=== PATIENT | female | born 1955 | race Caucasian/White ===

== ENCOUNTER 2016-11-09 16:51 | Observation (INO) | payer SELFPAY ==
--- NOTE | ~2016-11-09 | HP ---
History And Physical [address] [place]. [address] NAME: SPIKE TREVIÑO : 51 STATUS : ADM Evsin PAT#: [id number] AGE: 61 ADM/REG DATE : 11/09/16 MR#: [id number] REPORT SERV DATE: 11/10/16 DICTATED BY: IRAIDA DASH DATE: 11/09/16 REPORT STATUS : Draft TRANSCRIBED BY: MODJerad DATE: 11/09/16 DATE OF ADMISSION: 11/09/2016 CHIEF COMPLAINT: Numbness in face and arms. HISTORY OF PRESENT ILLNESS: The patient is a 61-year-old female with past medical history of hypertension, asthma, diabetes type 2 non-insulin dependent, hypothyroidism, history of DVT and PE, is on chronic anticoagulation and IVC filter placement due to hypercoagulable state; who presents after having upper extremity tingling feeling and numbness on face that majority have resolved but started approximately 11 o'clock today. Intermittent symptoms have been mild, majority left side but then went to right side face. No pain. Did have headaches, was found to be hypertensive in the 210s initially but self- resolved in the 160s without intervention. No nausea, vomiting, diarrhea, fever, chills, shortness of breath. There are no worsening or relieving symptoms, symptoms still currently present. Heart symptoms are currently almost fully resolved except for lip tingling. The patient did have eye pressure when blood pressure was high but this is also resolved too. PAST MEDICAL HISTORY: Asthma, hypertension, hypothyroidism, hyperlipidemia, PE, DVT. PAST SURGICAL HISTORY: Cholecystectomy, hysterectomy, IVC filter. ALLERGIES: SULFA. SOCIAL HISTORY: Lives in [place], [place] accompanied by . No alcohol, illicits, or tobacco. FAMILY HISTORY: CHF, hypertension, sisters have stroke. CURRENT MEDICATIONS: Tylenol, Synthroid, loratadine, metformin, Xarelto, Micardis, and Ultram. PHYSICAL EXAMINATION: VITAL SIGNS: The patient's blood pressure initially 219/107 down to 168/80s without intervention, temperature 98.7, pulse 90, respirations 19, and O2 sats 100%. GENERAL: No acute distress. Calm, pleasant, but obese. EYES: No scleral icterus. EOMI. ENT: Nares patent. Tongue midline. RESPIRATORY: Clear to auscultation. No wheezes or rales. CV: Regular rate. No rubs. GI: Soft, nontender, nondistended. Bowel sounds positive. Central obesity. : Deferred. MUSCULOSKELETAL: Moves all extremities x4. Symmetrical strength. SKIN: Warm and dry. LYMPH: No cervical or supraclavicular lymphadenopathy. HEME: No bleeding or bruising. NEURO: Alert and oriented. Symmetrical smile. Tongue midline. Eyes with bilateral mild History And Physical [address] [address] NAME: SPIKE TREVIÑO : 51 STATUS : ADM Esvin PAT#: [id number] AGE: 61 ADM/REG DATE : 11/09/16 MR#: [id number] REPORT SERV DATE: 11/10/16 DICTATED BY: IRAIDA DASH DATE: 11/09/16 REPORT STATUS : Draft TRANSCRIBED BY: RENETTA DATE: 11/09/16 horizontal nystagmus but no diplopia. No vertical nystagmus. Symmetrical brow wrinkle. Symmetrical strength in hands. Sensation grossly intact in upper and lower extremities. Does have movement in lower extremities. However, gait currently not tested. Normal vocal pelon and linear thinking. PSYCH: Appropriate mood and affect. LABS AND IMAGING: EKG normal sinus rhythm, rate of 93, QTc 435. Portable chest. No acute cardiopulmonary findings. Brain without contrast, no acute intracranial abnormality, calcified atherosclerosis. CMP grossly within normal limits. LFTs within normal limits. Troponin negative. CBC also grossly within normal limits. INR 1.3. Protime 16.2. ASSESSMENT AND PLAN: 1. Transient ischemic attack. 2. Hypercoagulable state. 3. Accelerated hypertension. 4. Axk-laixiry-orivedctu diabetes. 5. Hypothyroidism. 6. Hyperlipidemia. PLAN: 1. For TIA, CT negative. Does have risk factors of family history, diabetes, hypertension, PE, DVT, hypercoagulable state. We will check MRI, MRA for atypical symptoms, TIA protocol initiated. 2. Hypercoagulable state. PE, DVT, on Xarelto and has IVC filter. 3. Accelerated hypertension resolved without any intervention. Continue home medications and p.r.n. Blood pressure has improved to 160s and symptoms have resolved after blood pressure has decreased without any intervention in emergency room. 4. Jhl-ezrwout-mwlrhncmf diabetes. Sliding scale insulin. Check A1c. 5. Hypothyroidism, on replacement. 6. Hyperlipidemia. Check lipid profile. Start statin. All questions answered with the patient and family at bedside pending treatment as above. DDN/MODL Iraida Dash MD / [id number] CC: Edgar Card M.D.
--- NOTE | ~2016-11-09 | DS ---
Discharge Summary [facility] [address] [place]. [address] NAME: SPIKE TREVIÑO : 51 STATUS : DIS Esvin PAT#: [id number] AGE: 61 ADM/REG DATE : 11/09/16 MR#: [id number] REPORT SERV DATE: 11/10/16 DICTATED BY: IAIN MEJIA DATE: 11/10/16 REPORT STATUS : Draft TRANSCRIBED BY: MODL DATE: 11/10/16 ADMISSION DATE: 11/09/2016 DISCHARGE DATE: 11/10/2016 PRIMARY CARE PHYSICIAN: In [place], [place]. FINAL DIAGNOSES: This is a 61-year-old female who is going to be discharged with final diagnoses: 1. Possible transient ischemic attack. 2. Hypertensive urgency, resolved. 3. Hypercoagulable state with history of deep vein thrombosis and pulmonary embolism. 4. Diabetes. 5. Hypothyroidism. DIAGNOSTIC EXAMS: CAT scan of the brain showing no acute intracranial abnormality, calcific atherosclerosis. Chest x-ray showing no acute cardiopulmonary process. MRI of the brain and neck and MRA showing negative limited MRI of the brain. Normal MRA of the [place]. Normal MRA of the neck. HOSPITAL COURSE: Please refer to the H and P done by Dr. Dash dated yesterday, 11/09/2016. Briefly, this is a 61-year-old female who comes in for numbness in the face and arm. The patient has a history of DVT of the right lower extremity and PE at the same time. She got a filter and is on anticoagulation since then. The patient did not have any history of heart or brain disease and yesterday, she started having some upper extremity tingling and numbness that went to her face. The patient went to the emergency room, was found to have a systolic of 210, and she said her baseline is about 130 to 140 all the time. The patient was then admitted by Dr. Dash with a negative CAT scan. An MRI/MRA was done which shows the above findings. The patient's blood pressure went down. Symptoms went away. The patient is able to eat, remains afebrile with the rest of the vital stable, so with this, we will be discharging the patient with a possible TIA versus hypertensive urgency. Next, hypercoagulable state with a history of DVT and PE, diabetes, and hypothyroidism. DISCHARGE MEDICATIONS: The patient will now be discharged with the following medication aspirin 81 mg a day, Lipitor 10 mg at bedtime, Synthroid 100 mcg a day, loratadine 10 mg a day, Xarelto 20 mg a day, Micardis 40 mg a day, metformin 500 mg with supper, Ultram 50 mg p.r.n., and Tylenol p.r.n. The patient will follow up with her PCP in [place], [place]. This has been explained to her in front of the . They agreed and understood the plan. ZEYAD/RENETTA Iain Mejia M.D. Discharge Summary [address] [address] NAME: SPIKE TREVIÑO : 51 STATUS : DIS Esvin PAT#: [id number] AGE: 61 ADM/REG DATE : 11/09/16 MR#: [id number] REPORT SERV DATE: 11/10/16 DICTATED BY: IAIN MEJIA DATE: 11/10/16 REPORT STATUS : Draft TRANSCRIBED BY: RENETTA DATE: 11/10/16 / [id number] CC: Iain Mejia M.D. NO PCP
[2016-11-09 14:46] LABS: BASOPHILS 0.9 %; BASOPHILS ABSOLUTE 0.07 10/3/uL (0.0-0.16); EOSINOPHILS 3.2 %; EOSINOPHILS ABSOLUTE 0.24 10/3/uL (0.0-0.53); HEMATOCRIT 42.7 % (36.0-48.0); HEMOGLOBIN 14.5 g/dL (12.0-16.0); IMMATURE GRANULOCYTES 0.1 %; IMMATURE GRANULOCYTES ABSOLUTE 0.01 10/3/uL (0.0-0.11); LYMPHOCYTES 28.7 %; LYMPHOCYTES ABSOLUTE 2.14 10/3/uL (0.67-4.30); MEAN CORPUSCULAR VOLUME 88.4 fL (80-100); MEAN PLATELET VOLUME 9.7 fL (9.2-13.0); MONOCYTES 9.9 %; MONOCYTES ABSOLUTE 0.74 10/3/uL (0.21-1.20); NEUTROPHILS 57.2 %; NEUTROPHILS ABSOLUTE 4.26 10/3/uL (2.02-8.40); PLATELET COUNT 299 10/3/uL (150-400); RBC DISTRIBUTION WIDTH 13.3 % (12.0-16.0); RED CELL COUNT 4.83 10/6/uL (4.0-5.6); WHITE BLOOD CELLS 7.5 10/3/uL (4.5-10.5)
[2016-11-09 14:47] LABS: MANUAL DIFF NO %
[2016-11-09 14:55] LABS: INTERNATIONAL NORMAL RATI 1.3 UNITS (-); PROTIME (NOT ORD) 16.2 SEC (12.0-14.5)
[2016-11-09 15:03] LABS: A/G RATIO 0.9 (0.7-1.9); ALBUMIN 3.6 G/DL (3.5-5.0); ALKALINE PHOSPHATASE 75 U/L (45-117); BUN (BLOOD UREA NITROGEN) 12 MG/DL (6-23); CALCIUM, SERUM 9.5 MG/DL (8.5-10.4); CHLORIDE, SERUM 107 MMOL/L (96-112); CO2 (CARBON DIOXIDE) 27 MMOL/L (24-34); CREATININE 0.76 MG/DL (0.55-1.02); GFR AFRICAN AMERICAN 97 ML/MIN (>=60); GFR NON AFRICAN AMERICAN 83 ML/MIN (>=60); GLOBULIN 4.2 G/DL (2.5-4.1); GLUCOSE, SERUM 85 MG/DL (60-99); SGOT(AST) 15 U/L (5-40); SGPT(ALT) 25 U/L (5-65); SODIUM, SERUM 140 MMOL/L (135-148); TOTAL BILIRUBIN 0.5 MG/DL (0-1.2); TOTAL PROTEIN 7.8 G/DL (6.0-8.5); TROPONIN I <0.02 NG/ML (<0.05)
[~2016-11-09 16:51] MED LIST: ADVIL PO; CLARIT10 PO; FLONASE NAS; IBU800 PO; MICARDIS H80 MG/25 M PO; MICARDIS HC1 PO; MOBIC15 MG PO; SYN125 PO; VENTOLIN HFA INH; XARELTO15 MG PO; [UNRECOGNIZED DRUG - REMARK] PO
[2016-11-09] MEDS ORDERED: GLUCPH PO (17:19)
[2016-11-09] MEDS ORDERED: SYN1 PO (17:19)
[2016-11-09] MEDS ORDERED: ULTRAM50 PO (17:19)
[2016-11-09] MEDS ORDERED: XARELTO20 MG PO (17:20)
[2016-11-09] MEDS ORDERED: MICARDIS40 PO (17:20)
[2016-11-09] MEDS ORDERED: ACET500CAP PO (17:20)
[2016-11-09] MEDS ORDERED: CLARIT10 PO (17:21)
[2016-11-09 20:24] LABS: CHOL/HDL RATIO(NOT ORDER) 2.8 (0-5); CHOLESTEROL 177 MG/DL (< 200); CPK 83 U/L (0-200); HDL CHOLESTEROL 64 MG/DL (> 49); LDL CHOLESTEROL 93 MG/DL (< 130); NON-HDL CHOLESTEROL 113 MG/DL (< 160); PHOSPHORUS, SERUM 2.4 MG/DL (2.5-4.5); TRIGLYCERIDE 104 MG/DL (< 150); TROPONIN I <0.02 NG/ML (<0.05)
[2016-11-09 20:27] LABS: CK-MB 0.6 NG/ML
[2016-11-10 04:54] LABS: CPK 82 U/L (0-200); TROPONIN I <0.02 NG/ML (<0.05)
[2016-11-10 04:55] LABS: CK-MB 0.6 NG/ML
[2016-11-10 08:33] LABS: ASCORBIC ACID (UR NOT ORDER) NEG (NEG); BILIRUBIN, URINE NEGATIVE (NEG); KETONE, URINE NEGATIVE (NEG); LEUKOCYTE ESTERASE(NOT OR NEG (NEG); WBC (NOT ORDERED) (RFLEX) 1 (0-5)
[2016-11-10] MEDS ORDERED: ASAB PO (10:15)
[2016-11-10] MEDS ORDERED: LIPITOR10 PO (10:16)
== END 2016-11-10 11:13 | disposition home or self-care (01) ==
LOC: ER 16:51 → 2SO 17:50
PROVIDERS: Hospitalist; Internal Medicine; Student in an Organized Health Care Education/Training Program
DX: G45.9 Transient cerebral ischemic attack, unspecified (principal); I16.0 Hypertensive urgency; E11.9 Type 2 diabetes mellitus without complications; E03.9 Hypothyroidism, unspecified; D68.59 Other primary thrombophilia; J45.909 Unspecified asthma, uncomplicated; E78.5 Hyperlipidemia, unspecified; Z86.711 Personal history of pulmonary embolism; Z90.49 Acquired absence of other specified parts of digestive tract; Z90.710 Acquired absence of both cervix and uterus; Z88.2 Allergy status to sulfonamides
CPT/HCPCS: 70450; 70544; 70548; 70551-52; 71020; 80053; 80061; 81001; 82550; 82553; 82962; 83036; 83735; 84100; 84443; 84484; 85025; 85610; 85652; 85730; 93005; 99285; A9270-GY; A9577; G0378